=== PATIENT | female | born 1965 | race Caucasian/White ===

== ENCOUNTER 2020-05-13 07:58 | Emergency (ER) | payer OTHER ==
[2020-05-13 12:11] LABS: HEMOGLOBIN 13.9 gm/dl (12.3-15.3); RED BLOOD COUNT 4.58 M/UL (4.00-5.10); WHITE BLOOD COUNT 6.9 K/UL (4.5-11.0)
[2020-05-13 12:39] LABS: BUN/CREATININE RATIO 8 (0-10)
[2020-05-13] MEDS ORDERED: ZITHROMAX250 MG PO (15:47)
[2020-05-13] MEDS ORDERED: DECADRON6 MG PO (15:47)
[2020-05-13] MEDS ORDERED: LEVOTHYROXINE13 MCG PO (15:48)
== END 2020-05-13 16:40 | disposition home or self-care (01) ==
LOC: ER1 07:58
PROVIDERS: Physician Assistant
DX: J18.9 Pneumonia, unspecified organism (principal); R03.0 Elevated blood-pressure reading, without diagnosis of hypertension; R07.89 Other chest pain; E03.9 Hypothyroidism, unspecified; R06.02 Shortness of breath; R42 Dizziness and giddiness; R00.0 Tachycardia, unspecified; K76.0 Fatty (change of) liver, not elsewhere classified; Z91.14 Patient's other noncompliance with medication regimen; Z20.822 Contact with and (suspected) exposure to COVID-19
CPT/HCPCS: 36415; 71045; 80053; 82550; 82553; 83874; 84439; 84443; 84484; 85025; 85379; 93005; 99285; Q9967; U0003

== ENCOUNTER → 2020-09-20 | Outpatient (CLI) | payer OTHER ==
[~2020-09-20] MED LIST: BENTYL 20MG TAB20 MG PO; DECADRON6 MG PO; LEVOTHYROXINE13 MCG PO; ZITHROMAX250 MG PO; ZOFRAN ODT 4 MG4 MG PO
== END ==
LOC: RAD 19:28
DX: M54.5 Low back pain (principal); M54.9 Dorsalgia, unspecified; M51.34 Other intervertebral disc degeneration, thoracic region
CPT/HCPCS: 72072; 72110

== ENCOUNTER 2020-10-09 22:55 | Emergency (ER) | payer OTHER ==
[~2020-10-09 22:55] MED LIST changes: -BENTYL 20MG TAB20 MG PO; -ZOFRAN ODT 4 MG4 MG PO
[2020-10-09 23:44] LABS: HEMOGLOBIN 14.5 gm/dl (12.3-15.3); RED BLOOD COUNT 4.7 M/UL (4.00-5.10)
[2020-10-10 00:01] LABS: BUN/CREATININE RATIO 23 (0-10)
[2020-10-10] MEDS ORDERED: BENTYL 20MG TAB20 MG PO (01:28)
[2020-10-10] MEDS ORDERED: ZOFRAN ODT 4 MG4 MG PO (01:28)
== END 2020-10-10 01:47 | disposition home or self-care (01) ==
LOC: ER1 22:55
PROVIDERS: Physician Assistant
DX: R10.12 Left upper quadrant pain (principal); R10.32 Left lower quadrant pain; K21.9 Gastro-esophageal reflux disease without esophagitis; E78.5 Hyperlipidemia, unspecified; I10 Essential (primary) hypertension; E03.9 Hypothyroidism, unspecified; Z90.49 Acquired absence of other specified parts of digestive tract; Z88.8 Allergy status to other drugs, medicaments and biological substances
CPT/HCPCS: 80053; 81001; 83605; 83690; 85025; 87086; 96374; 96375; 99284; J1885; J2405; J7030; Q9967